=== PATIENT | male | born 1940 | race Caucasian/White ===

== ENCOUNTER → 2016-10-20 | Outpatient (CLI) | payer MEDICARE ==
[~2016-10-20] MED LIST: ASPI81 PO; CHON150C; CITA20 PO; CLOP75 PO; GLUC15002; ISOP1SOL IO; LIPI10TA PO; TRAZ50TA78 PO
[2016-10-20 13:23] LABS: ALKALINE PHOSPHATASE 77 U/L (45-117); ALT (GPT) 17 U/L (12-78); ANION GAP 4 MEQ/L (5-15); AST (GOT) 16 U/L (15-37); BICARBONATE 31.7 MEQ/L (21.0-32.0); BLOOD UREA NITROGEN 17 MG/DL (7-18); CHLORIDE 107 MEQ/L (98-107); GLOMERULAR FILTRATION RATE 64 ML/MIN (>89); GLUCOSE,FASTING 92 MG/DL (74-99); HDL CHOLESTEROL 63.8 MG/DL (40.0-60.0); LDL CHOLESTEROL 62 MG/DL (0-99); LDL CHOLESTEROL DIRECT 78 MG/DL (0-99); POTASSIUM 4.3 MEQ/L (3.5-5.1); SODIUM (NA) 143 MEQ/L (136-145); TOTAL BILIRUBIN ADULT 0.6 MG/DL (0.2-1.0)
[2016-10-20 13:31] LABS: HEMATOCRIT 37.1 % (39.0-51.0); MEAN CELL VOLUME 62.9 FL (80.0-100.0); MEAN CORPUSCULAR HEMOGLOBIN 19.7 PG (27.0-34.0); MEAN CORPUSCULAR HGB CONC 31.3 % (32.0-36.0); PLATELET COUNT 136 TH/MM3 (150-450); RED BLOOD COUNT 5.89 MIL/MM3 (4.50-5.90); RED CELL DISTRIBUTION WIDTH 16.5 % (11.6-17.2); WHITE BLOOD COUNT 4.5 TH/MM3 (4.0-11.0)
[2016-10-20 13:34] LABS: REVIEW FLAG AUTO DIFF
== END ==
LOC: PLAB 08:53
PROVIDERS: ATTEND Family Medicine
DX: I25.10 Atherosclerotic heart disease of native coronary artery without angina pectoris (principal); E78.4 Other hyperlipidemia; I10 Essential (primary) hypertension
CPT/HCPCS: 36415; 80053; 80061; 83721; 85027

== ENCOUNTER → 2017-02-09 | Outpatient (CLI) | payer MEDICARE ==
[2017-02-09 13:19] LABS: MEAN CELL VOLUME 61.9 FL (80.0-100.0); MEAN CORPUSCULAR HEMOGLOBIN 19.8 PG (27.0-34.0); PLATELET COUNT 141 TH/MM3 (150-450); RED BLOOD COUNT 5.98 MIL/MM3 (4.50-5.90); RED CELL DISTRIBUTION WIDTH 16.9 % (11.6-17.2); REVIEW FLAG FINAL; WHITE BLOOD COUNT 5.5 TH/MM3 (4.0-11.0)
[2017-02-09 13:45] LABS: ANION GAP 4 MEQ/L (5-15); AST (GOT) 16 U/L (15-37); BICARBONATE 30.3 MEQ/L (21.0-32.0); BLOOD UREA NITROGEN 16 MG/DL (7-18); CHLORIDE 106 MEQ/L (98-107); GLOMERULAR FILTRATION RATE 62 ML/MIN (>89); GLUCOSE,FASTING 94 MG/DL (74-99); POTASSIUM 4.3 MEQ/L (3.5-5.1); SODIUM (NA) 140 MEQ/L (136-145)
[2017-02-09 13:52] LABS: ALKALINE PHOSPHATASE 79 U/L (45-117); ALT (GPT) 18 U/L (12-78); HDL CHOLESTEROL 50.7 MG/DL (40.0-60.0); LDL CHOLESTEROL 68 MG/DL (0-99); LDL CHOLESTEROL DIRECT 72 MG/DL (0-99); TOTAL BILIRUBIN ADULT 0.7 MG/DL (0.2-1.0)
== END ==
LOC: PLAB 09:46
PROVIDERS: ATTEND Family Medicine
DX: I25.10 Atherosclerotic heart disease of native coronary artery without angina pectoris (principal); E78.4 Other hyperlipidemia
CPT/HCPCS: 36415; 80053; 80061; 83721; 85027

== ENCOUNTER → 2017-04-16 | Day surgery (SDC) | payer MEDICARE ==
[~2017-04-16] MED LIST changes: +ALEV220T14 PO; +ARTH650T6 PO; -ASPI81 PO; +ASPI81TA11 PO; +ATOR10TA15 PO; +CELE20TA PO; -CHON150C; +CHON250C PO; -CITA20 PO; -CLOP75 PO; -GLUC15002; +GLUC15002 PO; -ISOP1SOL IO; +LIDOCAINE HCL 1% PF 30 ML VIAL INFIL ONE; -LIPI10TA PO; +PILO1SOL5 EACH EYE; +PLAV75TA29 PO; +PROPOFOL 200 MG/20 ML AMP IV ONE; +SODIUM CHLORIDE 0.9% 10 ML VIAL ONE; +TRAZ50TA12 PO; -TRAZ50TA78 PO; +methylPREDNISolone ACETATE 80 MG/ML VIAL ONE
--- NOTE | 2017-04-18 11:52 | M6 ---
cc: MORENO MORALES M.D. DATE: 04/16/2017 DATE OF : 1940 PROCEDURE Fluoroscopically guided L4-5 translaminar epidural steroid injection. History and physical was completed and signed. Consent was signed. Procedure site was marked. Medications were listed and reconciled. Pain score was recorded. Allergies were noted. Time out was taken. Fluoroscopy time was recorded where applicable. Sedation was administered or directed by Dr. Morales. The patient was given oxygen. The patient was monitored by a registered nurse. Total procedure time was greater than 15 minutes. PROCEDURE NOTE: IV was started, blood pressure cuff, pulse oximeter and EKG were applied. The patient was placed in the prone position on a Seven table sedated with small amounts of propofol titrated to effect. Vital signs were monitored and remained stable throughout the procedure. The lumbar area was prepped with alcohol and 10% Betadine solution and draped with sterile drapes. Fluoroscopy was used to visualize the L4-5 interlaminar space. The skin was infiltrated with 1% Xylocaine using a 27 gauge needle, then a 3-1/2-inch 18-gauge Sarabia needle was advanced using fluoroscopic guidance and the [id number] technique into the epidural space at L4-5 slightly to the left of the midline. There was negative aspiration for blood or any other type of fluid and the patient was given 10 mL of 0.5% Xylocaine, 80 mg of Depo-Medrol. Following the procedure the patient was taken to the recovery room with stable vital signs neurologically intact. W. MD KRISTAN Wu/WILLARD /9:31 AM /7:55 AM
== END | disposition home or self-care (01) ==
LOC: PHSDC 08:24
PROVIDERS: ATTEND Pain Medicine Interventional Pain Medicine
DX: M54.5 Low back pain (principal)
CPT/HCPCS: 62323; 99152; J1040

== ENCOUNTER → 2017-05-06 | Outpatient (CLI) | payer MEDICARE ==
[~2017-05-06] MED LIST changes: -LIDOCAINE HCL 1% PF 30 ML VIAL INFIL ONE; -PLAV75TA29 PO; -PROPOFOL 200 MG/20 ML AMP IV ONE; -SODIUM CHLORIDE 0.9% 10 ML VIAL ONE; -methylPREDNISolone ACETATE 80 MG/ML VIAL ONE
[2017-05-06 13:39] LABS: HEMATOCRIT 37.2 % (39.0-51.0); MEAN CELL VOLUME 63.3 FL (80.0-100.0); MEAN CORPUSCULAR HEMOGLOBIN 19.8 PG (27.0-34.0); MEAN CORPUSCULAR HGB CONC 31.4 % (32.0-36.0); PLATELET COUNT 132 TH/MM3 (150-450); RED BLOOD COUNT 5.87 MIL/MM3 (4.50-5.90); RED CELL DISTRIBUTION WIDTH 16.9 % (11.6-17.2); WHITE BLOOD COUNT 5.8 TH/MM3 (4.0-11.0)
[2017-05-06 13:44] LABS: REVIEW FLAG FINAL
[2017-05-06 13:50] LABS: ANION GAP 4 MEQ/L (5-15); AST (GOT) 15 U/L (15-37); BICARBONATE 28.4 MEQ/L (21.0-32.0); BLOOD UREA NITROGEN 20 MG/DL (7-18); CHLORIDE 109 MEQ/L (98-107); GLOMERULAR FILTRATION RATE 58 ML/MIN (>89); GLUCOSE,FASTING 93 MG/DL (74-99); POTASSIUM 4.1 MEQ/L (3.5-5.1); SODIUM (NA) 141 MEQ/L (136-145)
[2017-05-06 14:03] LABS: ALKALINE PHOSPHATASE 78 U/L (45-117); ALT (GPT) 21 U/L (12-78); LDL CHOLESTEROL 68 MG/DL (0-99); LDL CHOLESTEROL DIRECT 82 MG/DL (0-99); TOTAL BILIRUBIN ADULT 0.6 MG/DL (0.2-1.0)
== END ==
LOC: PLAB 09:14
PROVIDERS: ATTEND Family Medicine
DX: I25.10 Atherosclerotic heart disease of native coronary artery without angina pectoris (principal); E78.2 Mixed hyperlipidemia; I10 Essential (primary) hypertension
CPT/HCPCS: 36415; 80053; 80061; 83721; 85027

== ENCOUNTER → 2017-08-13 | Outpatient (CLI) | payer MEDICARE ==
[~2017-08-13] MED LIST changes: -ASPI81TA11 PO; +ASPI81TA23 PO; -GLUC15002 PO; +GLUCOSAMINE 1501 CAP PO
[2017-08-13 09:52] LABS: ANION GAP 5 MEQ/L (5-15); AST (GOT) 15 U/L (15-37); BICARBONATE 29.3 MEQ/L (21.0-32.0); BLOOD UREA NITROGEN 16 MG/DL (7-18); CHLORIDE 108 MEQ/L (98-107); GLOMERULAR FILTRATION RATE 69 ML/MIN (>89); GLUCOSE,FASTING 92 MG/DL (74-99); POTASSIUM 3.9 MEQ/L (3.5-5.1); SODIUM (NA) 142 MEQ/L (136-145)
[2017-08-13 09:53] LABS: HEMATOCRIT 36.8 % (39.0-51.0); MEAN CELL VOLUME 63.9 FL (80.0-100.0); MEAN CORPUSCULAR HEMOGLOBIN 20.1 PG (27.0-34.0); MEAN CORPUSCULAR HGB CONC 31.5 % (32.0-36.0); PLATELET COUNT 158 TH/MM3 (150-450); RED BLOOD COUNT 5.76 MIL/MM3 (4.50-5.90); RED CELL DISTRIBUTION WIDTH 16.2 % (11.6-17.2); REVIEW FLAG FINAL; WHITE BLOOD COUNT 5.5 TH/MM3 (4.0-11.0)
[2017-08-13 09:59] LABS: ALKALINE PHOSPHATASE 79 U/L (45-117); ALT (GPT) 18 U/L (12-78); HDL CHOLESTEROL 64.3 MG/DL (40.0-60.0); LDL CHOLESTEROL 60 MG/DL (0-99); LDL CHOLESTEROL DIRECT 72 MG/DL (0-99); TOTAL BILIRUBIN ADULT 0.6 MG/DL (0.2-1.0)
== END ==
LOC: PLAB 07:59
PROVIDERS: ATTEND Family Medicine
DX: I25.10 Atherosclerotic heart disease of native coronary artery without angina pectoris (principal); E78.2 Mixed hyperlipidemia; I10 Essential (primary) hypertension
CPT/HCPCS: 36415; 80053; 80061; 83721; 85027

== ENCOUNTER → 2017-11-24 | Outpatient (CLI) | payer MEDICARE ==
[2017-11-24 10:17] LABS: HEMATOCRIT 36.6 % (39.0-51.0); HEMOGLOBIN 11.4 GM/DL (13.0-17.0); MEAN CORPUSCULAR HEMOGLOBIN 19.6 PG (27.0-34.0); MEAN CORPUSCULAR HGB CONC 31.2 % (32.0-36.0); MEAN PLATELET VOLUME 9.6 FL (7.0-11.0); PLATELET COUNT 148 TH/MM3 (150-450); RED BLOOD COUNT 5.81 MIL/MM3 (4.50-5.90); RED CELL DISTRIBUTION WIDTH 17.5 % (11.6-17.2); WHITE BLOOD COUNT 5.1 TH/MM3 (4.0-11.0)
[2017-11-24 10:31] LABS: ALBUMIN 3.5 GM/DL (3.4-5.0); AST (GOT) 18 U/L (15-37); BICARBONATE 27.2 MEQ/L (21.0-32.0); BLOOD UREA NITROGEN 22 MG/DL (7-18); CALCIUM 8.5 MG/DL (8.5-10.1); CHLORIDE 109 MEQ/L (98-107); CREATININE 1.16 MG/DL (0.60-1.30); GLOMERULAR FILTRATION RATE 61 ML/MIN (>89); GLUCOSE,FASTING 98 MG/DL (74-99); SODIUM (NA) 143 MEQ/L (136-145)
[2017-11-24 10:33] LABS: CHOLESTEROL 137 MG/DL (120-200)
[2017-11-24 10:38] LABS: ALKALINE PHOSPHATASE 73 U/L (45-117); ALT (GPT) 19 U/L (12-78); CHOLESTEROL/ HDL RATIO 2.64 RATIO; HDL CHOLESTEROL 51.8 MG/DL (40.0-60.0); LDL CHOLESTEROL 68 MG/DL (0-99); LDL CHOLESTEROL DIRECT 81 MG/DL (0-99); TOTAL BILIRUBIN ADULT 0.6 MG/DL (0.2-1.0); TOTAL PROTEIN 6.5 GM/DL (6.4-8.2); TRIGLYCERIDES 88 MG/DL (42-150)
[2017-11-25 15:22] LABS: HEMOGLOBIN A1C 5.6 % (4.3-6.0)
== END ==
LOC: PLAB 07:34
PROVIDERS: ATTEND Family Medicine
DX: I25.10 Atherosclerotic heart disease of native coronary artery without angina pectoris (principal); E78.5 Hyperlipidemia, unspecified; I10 Essential (primary) hypertension; R73.01 Impaired fasting glucose
CPT/HCPCS: 36415; 80053; 80061; 83036; 83721; 85027

== ENCOUNTER 2018-06-10 15:09 | Observation (INO) ==
--- NOTE | 2018-06-10 16:09 | ED ---
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 Frost for arthritis, here for evaluation of double vision that started about 30 minutes prior to arrival. On my assessment the patient reports that the double vision was in his right eye predominantly, and seems to be improved, however still slightly there. He denies eye pain. No paresthesias or motor deficits. He also noted that his blood pressure was significantly low at the onset of symptoms, stating that it was around 113/24. 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 He takes 81mg ASA daily. Related Data Home Medications Medication Instructions Recorded Confirmed aspirin [Aspir-81] 81 mg PO DAILY 06/10/18 06/10/18 atorvastatin [Lipitor] 10 mg PO DAILY 06/10/18 06/10/18 chondroitin sulfate A 250 mg PO BID 06/10/18 06/10/18 citalopram 20 mg PO DAILY 06/10/18 06/10/18 gabapentin 300 mg PO BID 06/10/18 06/10/18 glucosamine sulfate [Glucosamine] 1,500 mg PO BID 06/10/18 06/10/18 hydrocodone-acetaminophen 0 tab PO Q4-6H PRN 06/10/18 06/10/18 trazodone 50 mg PO HS 06/10/18 06/10/18 Allergies Allergy/AdvReac Type Severity Reaction Status Date / Time No Known Allergies Allergy Verified 06/10/18 15:19 Review of Systems ROS: all other systems reviewed are negative [facility] Medical History Medical History High cholesterol (Acute) History of CVA (cerebrovascular accident) (Acute) Surgical History Surgical History Hx of arthroscopic knee surgery (Acute) Hx of cataract surgery (Acute) Hx of tonsillectomy (Acute) Social History Social History Substance History: No History of Abuse Second Hand Smoke Exposure: Yes (as child) Smoking Status: Never smoker How Often Do You Have a Drink Containing Alcohol: 4 or more times a week Recent Travel in [facility] within the Last 8 Weeks: No Recent Out of Country Travel within the Last 8 Weeks: No Immunization History Tetanus Immunization: Unsure Exam Narrative Exam Narrative: GENERAL: Well-developed, well-nourished, awake, alert, comfortable, no acute distress, GCS 15. SKIN: Focused skin assessment warm/dry. HEAD: Atraumatic. Normocephalic. EYES: Left pupil is 3 mm and minimally reactive, right pupil is 2 mm and minimally reactive. EOMI. No scleral icterus. No injection or drainage. ENT: No nasal bleeding or discharge. Mucous membranes pink and moist. NECK: Trachea midline. No JVD. CARDIOVASCULAR: Regular rate and rhythm. RESPIRATORY: No accessory muscle use. Clear to auscultation. Breath sounds equal bilaterally. GASTROINTESTINAL: Abdomen soft, non-tender, nondistended. MUSCULOSKELETAL: No obvious deformities. No clubbing. No cyanosis. No edema. NEUROLOGICAL: Awake and alert. No obvious cranial nerve deficits. Motor grossly within normal limits. Normal speech. Normal ufldkg-wmpb-pyojhn test bilaterally. No pronator drift. PSYCHIATRIC: Appropriate mood and affect; insight and judgment normal. Course Initial Documented Vital Signs Temperature 99.0 F 06/10/18 15:19 Pulse Rate 75 06/10/18 15:19 Respiratory Rate 16 06/10/18 15:19 Blood Pressure 156/79 H 06/10/18 15:19 Pulse Oximetry 97 06/10/18 15:19 Last Documented Vital Signs Temperature 98.1 F 06/10/18 19:06 Pulse Rate 73 06/10/18 19:06 Respiratory Rate 18 06/10/18 19:06 Blood Pressure 142/83 H 06/10/18 19:50 Pulse Oximetry 97 06/10/18 16:02 Medical Decision Making [facility] Narrative Medical decision making narrative: Upon return from CT at around 4:30 PM the patient reports that his diplopia has completely resolved. Vital signs reviewed. CBC is remarkable for slight anemia. The patient has history of thalassemia minor. CT head shows no acute intracranial abnormality. EKG shows an old left bundle branch block. The patient and the patient's were made aware of all findings. Given his history of CVA affecting his left lower quadrant vision, although his symptoms have resolved, this could be a TIA, and I recommend admission for further TIA workup. They are amenable to this plan. Case discussed with hospitalist Dr. Lopez who will admit the patient to the hospitalist service. He asked that I order the MRI of the patient's brain. Medical Screen Exam Complete: Yes Emergency Medical Condition: Yes Differential Diagnosis Differential Diagnosis: CVA/TIA, intracranial abnormality, metabolic abnormality , monocular diplopia Lab Data Result diagrams: 06/10/18 16:14 06/10/18 16:14 Lab Results 06/10/18 06/10/18 06/10/18 Range/Units 16:11 16:14 16:14 CBC w Diff Slide review pending WBC 6.4 (4.0-11.0) th/mm3 RBC 5.05 (4.50-5.90) mil/mm3 Hgb 10.5 L (13.0-17.0) gm/dL Hct 33.1 L (39.0-51.0) % MCV 65.4 L (80.0-100.0) fL MCH 20.7 L (27.0-34.0) pg MCHC 31.6 L (32.0-36.0) % RDW 16.1 (11.6-17.2) % Plt Count 157 (150-450) th/mm3 MPV 11.8 H (7.0-11.0) fL Neut % (Auto) 62.8 (16.0-70.0) % Lymph % (Auto) 25.9 (9.0-44.0) % Benzie % (Auto) 9.6 H (0.0-8.0) % Eos % (Auto) 1.2 (0.0-4.0) % Baso % (Auto) 0.5 (0.0-2.0) % Neut # (Auto) 4.0 (1.8-7.7) th/mm3 Lymph # (Auto) 1.7 (1.0-4.8) th/mm3 Benzie # (Auto) 0.6 (0.0-0.9) th/mm3 Eos # (Auto) 0.1 (0.0-0.4) th/mm3 Baso # (Auto) 0.0 (0.0-0.2) th/mm3 WBC Differential . Diff Scan Auto diff confirmed Differential Comment . Platelet Estimate Normal (Normal) Platelet Morphology Enlarged H (Normal) Ovalocytes 1+ H (None) PT 10.1 (9.8-11.6) sec INR 1.0 Ratio APTT 24.2 L (24.3-30.1) sec Sodium (136-145) meq/L Potassium (3.5-5.1) meq/L Chloride (98-107) meq/L Carbon Dioxide (21.0-32.0) meq/L Anion Gap (5-15) meq/L BUN (7-18) mg/dL Creatinine (0.60-1.30) mg/dL Estimated GFR (>89) mL/min POC Glucose 103 (68-110) mg/dl Random Glucose (74-106) mg/dL Calcium (8.5-10.1) mg/dL Total Bilirubin (0.2-1.0) mg/dL AST (15-37) U/L ALT (12-78) U/L Alkaline Phosphatase (45-117) U/L Total Protein (6.4-8.2) g/dL Albumin (3.4-5.0) g/dL 06/10/18 Range/Units 16:14 CBC w Diff WBC (4.0-11.0) th/mm3 RBC (4.50-5.90) mil/mm3 Hgb (13.0-17.0) gm/dL Hct (39.0-51.0) % MCV (80.0-100.0) fL MCH (27.0-34.0) pg MCHC (32.0-36.0) % RDW (11.6-17.2) % Plt Count (150-450) th/mm3 MPV (7.0-11.0) fL Neut % (Auto) (16.0-70.0) % Lymph % (Auto) (9.0-44.0) % Benzie % (Auto) (0.0-8.0) % Eos % (Auto) (0.0-4.0) % Baso % (Auto) (0.0-2.0) % Neut # (Auto) (1.8-7.7) th/mm3 Lymph # (Auto) (1.0-4.8) th/mm3 Benzie # (Auto) (0.0-0.9) th/mm3 Eos # (Auto) (0.0-0.4) th/mm3 Baso # (Auto) (0.0-0.2) th/mm3 WBC Differential Diff Scan Differential Comment Platelet Estimate (Normal) Platelet Morphology (Normal) Ovalocytes (None) PT (9.8-11.6) sec INR Ratio APTT (24.3-30.1) sec Sodium 145 (136-145) meq/L Potassium 4.2 (3.5-5.1) meq/L Chloride 109 H (98-107) meq/L Carbon Dioxide 31.3 (21.0-32.0) meq/L Anion Gap 5 (5-15) meq/L BUN 21 H (7-18) mg/dL Creatinine 1.20 (0.60-1.30) mg/dL Estimated GFR 58 L (>89) mL/min POC Glucose (68-110) mg/dl Random Glucose 95 (74-106) mg/dL Calcium 7.9 L (8.5-10.1) mg/dL Total Bilirubin 0.4 (0.2-1.0) mg/dL AST 16 (15-37) U/L ALT 21 (12-78) U/L Alkaline Phosphatase 77 (45-117) U/L Total Protein 6.0 L (6.4-8.2) g/dL Albumin 3.2 L (3.4-5.0) g/dL Imaging Data Radiologist's impression: Carotid Doppler Study 06/10/18 00:00 CONCLUSION: Mild plaque is seen at the carotid bulb regions without a significant stenosis. Head CT 06/10/18 16:02 CONCLUSION: 1. Negative for acute process . ECG Data Attestation: I personally reviewed and interpreted this ECG as follows: (Sinus, rate 68, left axis deviation, LBBB, unchanged from 11/30/15.) Discharge Plan Discharge Disposition Patient Disposition: 30 Still Patient Discharge Condition Condition: Stable Discharge Details Diagnosis: TIA (transient ischemic attack), Diplopia Physicians Team ED Provider: Nathanael Zimmer Primary Care Provider: Tim Gutierrez Attending Provider: Bull Lopez Status ED Status: Left Department Discharge Information Discharge Date/Time: 06/10/18 20:08
--- NOTE | 2018-06-10 16:26 | CT ---
EXAM DATE: 06/10/2018 4:06 PM EDT AGE/SEX: 78 years / Male INDICATIONS: Blurred vision. Low blood pressure. Evaluate for cerebrovascular accident. CLINICAL DATA: This is the patient's initial encounter. Patient reports that signs and symptoms have been present for 1 day and indicates a pain score of 0/10. MEDICAL/SURGICAL HISTORY: Cerebrovascular disease. Stroke. None. RADIATION DOSE: 52.49 CTDI (mGy) COMPARISON: [facility] [place], [place] BRAIN W/O CONTRAST, 03/07/2016. . TECHNIQUE: CT of the head without contrast. Using automated exposure control and adjustment of the mA and/or kV according to patient size, radiation dose was kept as low as reasonably achievable to ob tain optimal diagnostic quality images. DICOM format image data is available electronically for revi ew and comparison. FINDINGS: Cerebrum: The ventricles are normal for age. No evidence of midline shift, mass lesion, hemorrhage or acute infarction. No extraaxial fluid collections are seen. Posterior Fossa: The cerebellum and brainstem are intact. The 4th ventricle is midline. The cerebe llopontine angle is unremarkable. Extracranial: The visualized portion of the orbits is intact. Skull: The calvaria is intact. No evidence of skull fracture. CONCLUSION: 1. Negative for acute process . Electronically signed by: Irving Cowart MD 06/10/2018 4:25 PM EDT
[2018-06-10] MEDS: Sod Chloride 0.9% Inj 1,000 ML IV.CONT SCH (16:34)
[2018-06-10 16:42] LABS: Baso % (Auto) 0.5 % (0.0-2.0); Eos # (Auto) 0.1 th/mm3 (0.0-0.4); Eos % (Auto) 1.2 % (0.0-4.0); Hematocrit 33.1 % (39.0-51.0); Hemoglobin 10.5 gm/dL (13.0-17.0); Lymph # (Auto) 1.7 th/mm3 (1.0-4.8); Lymph % (Auto) 25.9 % (9.0-44.0); Mean Corpuscular HGB Conc 31.6 % (32.0-36.0); Mean Corpuscular Hemoglobin 20.7 pg (27.0-34.0); Mean Corpuscular Volume 65.4 fL (80.0-100.0); Mean Platelet Volume 11.8 fL (7.0-11.0); Mono # (Auto) 0.6 th/mm3 (0.0-0.9); Mono % (Auto) 9.6 % (0.0-8.0); Neut % (Auto) 62.8 % (16.0-70.0); Platelet Count 157 th/mm3 (150-450); Red Blood Count 5.05 mil/mm3 (4.50-5.90); Red Cell Distribution Width 16.1 % (11.6-17.2); White Blood Count 6.4 th/mm3 (4.0-11.0)
[2018-06-10 16:54] LABS: Activated Partial Thrombo Time 24.2 sec (24.3-30.1); Prothrombin Time 10.1 sec (9.8-11.6)
[2018-06-10 17:12] LABS: Ovalocytes 1+; Platelet Estimate Normal (Normal)
[2018-06-10 17:14] LABS: Chloride 109 meq/L (98-107); Potassium 4.2 meq/L (3.5-5.1); Sodium 145 meq/L (136-145)
[2018-06-10 17:17] LABS: Albumin 3.2 g/dL (3.4-5.0); Anion Gap 5 meq/L (5-15); Blood Urea Nitrogen 21 mg/dL (7-18); Calcium 7.9 mg/dL (8.5-10.1); Carbon Dioxide 31.3 meq/L (21.0-32.0); Glucose,Random 95 mg/dL (74-106)
[2018-06-10 17:20] LABS: Alanine Aminotransferase 21 U/L (12-78); Aspartate Aminotransferase 16 U/L (15-37); Glomerular Filtration Rate 58 mL/min (>89)
[2018-06-10 17:23] LABS: Alkaline Phosphatase 77 U/L (45-117)
[2018-06-10] MEDS ORDERED: Acetaminophen 325 MG Tablet PO PRN (19:03)
[2018-06-10] MEDS ORDERED: Naloxone Inj 0.4 MG/ML Vial IV.PUSH PRN (19:06)
[2018-06-10] MEDS ORDERED: hydrALAZINE 25 MG Tablet PO PRN (19:07)
--- NOTE | 2018-06-10 20:47 | US ---
EXAM DATE: 06/10/2018 12:00 AM EDT AGE/SEX: 78 years / Male INDICATIONS: Double vision for 30 min. CLINICAL DATA: This is the patient's initial encounter. Patient reports that signs and symptoms have been present for 1 day and indicates a pain score of 0/10. MEDICAL/SURGICAL HISTORY: Hypertension. CVA. Tonsillectomy. Cataract surgery. Arthroscopic kn ee surgery. [place] [facility] [place] . VELOCITY PARAMETERS: ICA/CCA Ratio: Right 0.9 , Left 1.0 ICA: Right 81 cm/sec, Left 76 cm/sec CCA: Right 86 cm/sec, Left 78 cm/sec ECA: Right 54 cm/sec, Left 63 cm/sec Vertebral: Right 53 cm/sec antegrade, Left 38 cm/sec antegrade FINDINGS: Right Carotid: Mild arteriosclerotic plaque is visualized.The waveforms are within normal limits. Left Carotid: Mild arteriosclerotic plaque is visualized. The waveforms are within normal limits. Other: None. CONCLUSION: Mild plaque is seen at the carotid bulb regions without a significant stenosis. Electronically signed by: Parviz Boyle MD 06/10/2018 8:46 PM EDT
[2018-06-10] MEDS ORDERED: CHONDROITIN SULFATE PO SCH (21:00)
[2018-06-10] MEDS: Gabapentin 300 MG Capsule PO SCH (21:04)
[2018-06-11 06:02] LABS: Chloride 109 meq/L (98-107); Potassium 4.5 meq/L (3.5-5.1); Sodium 143 meq/L (136-145)
[2018-06-11 06:05] LABS: Albumin 2.9 g/dL (3.4-5.0); Anion Gap 4 meq/L (5-15); Calcium 7.8 mg/dL (8.5-10.1); Carbon Dioxide 29.9 meq/L (21.0-32.0); Glucose,Random 80 mg/dL (74-106)
[2018-06-11 06:06] LABS: Blood Urea Nitrogen 17 mg/dL (7-18)
[2018-06-11 06:08] LABS: Alanine Aminotransferase 16 U/L (12-78); Aspartate Aminotransferase 13 U/L (15-37)
[2018-06-11 06:09] LABS: Glomerular Filtration Rate 72 mL/min (>89)
[2018-06-11 06:10] LABS: Total Protein 5.6 g/dL (6.4-8.2)
[2018-06-11 06:11] LABS: Alkaline Phosphatase 75 U/L (45-117)
[2018-06-11 06:18] LABS: Baso % (Auto) 0.3 % (0.0-2.0); Eos # (Auto) 0.1 th/mm3 (0.0-0.4); Eos % (Auto) 2.4 % (0.0-4.0); Hematocrit 31.8 % (39.0-51.0); Hemoglobin 10.2 gm/dL (13.0-17.0); Lymph % (Auto) 40.3 % (9.0-44.0); Mean Corpuscular HGB Conc 31.9 % (32.0-36.0); Mean Corpuscular Hemoglobin 20.6 pg (27.0-34.0); Mean Corpuscular Volume 64.5 fL (80.0-100.0); Mean Platelet Volume 9.7 fL (7.0-11.0); Mono # (Auto) 0.5 th/mm3 (0.0-0.9); Mono % (Auto) 9.6 % (0.0-8.0); Neut # (Auto) 2.5 th/mm3 (1.8-7.7); Neut % (Auto) 47.4 % (16.0-70.0); Platelet Count 116 th/mm3 (150-450); Red Blood Count 4.94 mil/mm3 (4.50-5.90); Red Cell Distribution Width 15.9 % (11.6-17.2); White Blood Count 5.1 th/mm3 (4.0-11.0)
[2018-06-11] MEDS: Sod Chloride 0.9% Inj 1,000 ML IV.CONT SCH (07:19)
[2018-06-11] MEDS: Gabapentin 300 MG Capsule PO SCH (08:52)
[2018-06-11] MEDS ORDERED: Citalopram 20 MG Tablet PO SCH (09:00)
--- NOTE | 2018-06-11 10:32 | MR ---
EXAM DATE: 06/11/2018 6:13 PM EDT AGE/SEX: 78 years / Male INDICATIONS: TIA. Diplopia, resolved. CLINICAL DATA: This is the patient's initial encounter. Patient reports that signs and symptoms have been present for 2 days and indicates a pain score of 0/10. MEDICAL/SURGICAL HISTORY: Cerebrovascular disease. Cardiovascular disease. CABG. Loop recorder . COMPARISON: [facility], CT HEAD W/O CONTRAST, 06/10/2018. C, [facility] BRAIN W/O CONTRAST, 03/07/2016. . TECHNIQUE: Multiplanar, multisequence examination of the brain was performed without contrast. FINDINGS: Cerebrum: The ventricles are normal for age. No evidence of midline shift, mass lesion, hemorrhage or acute infarction. No extraaxial fluid collections are seen. Area of encephalomalacia involving th e right posterior occipital lobe. The pituitary gland and suprasellar cistern are normal in configura tion. White Matter: Periventricular white matter hypointensities and scattered foci of increased white matter hyperintens ity within the right and left frontal lobes. Focal area of encephalomalacia involving the posterior a spect of the right occipital lobe. Posterior Fossa: The cerebellum and brainstem are intact. The 4th ventricle is midline. The cerebel lopontine angle is unremarkable. The cerebellar tonsils are normal in position. Diffusion Imaging: No focal areas of restricted diffusion are seen. No evidence of acute infarction . Extracranial: The visualized portions of the orbits and paranasal sinuses are unremarkable. CONCLUSION: 1. No acute abnormality seen. Electronically signed by: Imelda Cantu MD 06/11/2018 10:31 AM EDT
--- NOTE | 2018-06-11 11:06 | P.HP ---
History of Present Illness Primary Care Physician: Tim Gutierrez MD Chief Complaint: Double vision History of Present Illness: 78-year-old male with known history of hyperlipidemia, hypertrophic cardiomyopathy, history of CVA who presented the hospital because an episode of double vision. Patient was reading the paper and doing some puzzles at approximately 230 yesterday afternoon when he had a short-term episode of double vision. Patient states that he was having a hard time focusing and he compared his right eye versus left eye and he did notice that there may have been some double vision. Patient states that it lasted for short period time approximately 20-30 minutes. He did have a previous stroke which presented with visual disturbances a few years ago. Because of the visual disturbances before he came to the hospital to evaluate for another stroke. Patient denies any other neurological symptoms. Denies any speech difficulties, difficulty in swallowing food, paresthesia, weakness, difficulty in speaking. Patient was given aspirin in the emergency department, CT scan was done which was unremarkable. ER physician recommended patient be observed in the hospital for further evaluation and management. - Diagnosis (1) Transient diplopia Review of Systems All other systems reviewed negative except as stated in HPI Eyes: Reports double vision PMFSH - History History Provided By: Patient - Medical History Medical History: Medical History (Last Reviewed 06/11/18 @ 11:03 by CE Smart) High cholesterol History of CVA (cerebrovascular accident) - Surgical History Surgical History: Surgical History (Last Reviewed 06/11/18 @ 11:03 by CE Smart) Hx of arthroscopic knee surgery Hx of cataract surgery Hx of tonsillectomy - Family History Family History: Family History (Last Updated 06/11/18 @ 10:50 by CE Smart) Mother History of myocardial infarction Father History of throat cancer Brother Family history of Alzheimer's disease - Tobacco History Second Hand Smoke Exposure: Yes (as child) Tobacco Use In Past 30 Days: No Smoking Status: Never smoker - Alcohol History How Often Do You Have a Drink Containing Alcohol: 4 or more times a week - Substance Use History Substance History: No History of Abuse - Travel History Recent Travel in the [place] Within the Last 8 Weeks: No Recent Travel Out of the Country Within the Last 8 Weeks: No - Immunization History Tetanus Immunization: Unsure Medications and Allergies Active Medications: Active Medications Acetaminophen (Tylenol) 650 mg PO Q4H PRN PRN Reason: Temp > 100.4 Hydrocodone Bitart/Acetaminophen ([place] 5/325) 1 tab PO Q4H PRN PRN Reason: PAIN SCALE 3 TO 5 Last Admin: 06/10/18 21:03 Dose: 1 tab Hydrocodone Bitart/Acetaminophen ([place] 7.5/325) 1 tab PO Q4H PRN PRN Reason: PAIN SCALE 6 TO 10 Last Admin: 06/11/18 04:02 Dose: 1 tab Al Hydroxide/Mg Hydroxide (Milk Of [place] Vo) 30 ml PO Q12H PRN PRN Reason: Mild Constipation Albuterol (Duoneb Neb (Prn)) 1 ampul NEB Q2HR NEB PRN PRN Reason: SHORTNESS OF BREATH Aspirin (Ecotrin) 81 mg PO DAILY [facility] Last Admin: 06/11/18 08:52 Dose: 81 mg Atorvastatin Calcium (Lipitor) 10 mg PO DAILY [facility] Last Admin: 06/11/18 08:52 Dose: 10 mg Citalopram Hydrobromide (Celexa) 20 mg PO DAILY [facility] Last Admin: 06/11/18 08:52 Dose: 20 mg Gabapentin (Neurontin) 300 mg PO BID [facility] Last Admin: 06/11/18 08:52 Dose: 300 mg Hydralazine HCl (Apresoline) 25 mg PO TID PRN PRN Reason: SBP>160, DBP>90 Sodium Chloride (Ns Inj) 1,000 mls @ 70 mls/hr IV.CONT .[id number] [facility] Last Admin: 06/11/18 07:19 Dose: 70 mls/hr Naloxone HCl (Narcan Inj) 0.4 mg IV.PUSH UNSCH PRN PRN Reason: SEE LABEL COMMENTS Ondansetron HCl (Zofran Inj) 4 mg IV.PUSH Q6H PRN PRN Reason: NAUSEA OR VOMITING Allergies Allergy/AdvReac Type Severity Reaction Status Date / Time No Known Allergies Allergy Verified 06/10/18 15:19 Home Medications Medication Instructions Recorded Confirmed Type aspirin [Aspir-81] 81 mg PO DAILY 06/10/18 06/10/18 History atorvastatin [Lipitor] 10 mg PO DAILY 06/10/18 06/10/18 History chondroitin sulfate A 250 mg PO BID 06/10/18 06/10/18 History citalopram 20 mg PO DAILY 06/10/18 06/10/18 History gabapentin 300 mg PO BID 06/10/18 06/10/18 History glucosamine sulfate [Glucosamine] 1,500 mg PO BID 06/10/18 06/10/18 History hydrocodone-acetaminophen 0 tab PO Q4-6H PRN 06/10/18 06/10/18 History trazodone 50 mg PO HS 06/10/18 06/10/18 History Exam Vital signs: Vital Signs 06/10/18 15:19 06/10/18 16:02 06/10/18 19:06 Temperature 99.0 F 98.1 F Pulse Rate 75 78 73 Respiratory Rate 16 18 Blood Pressure 156/79 H 151/83 H Pulse Oximetry 97 97 06/10/18 19:50 06/10/18 20:02 06/10/18 20:07 Temperature 98.3 F Pulse Rate Respiratory Rate Blood Pressure 142/83 H 162/83 H Pulse Oximetry 97 99 06/10/18 21:38 06/10/18 22:00 06/10/18 23:41 Temperature 97.8 F Pulse Rate 70 68 Respiratory Rate 25 H 19 Blood Pressure 141/81 H 117/78 Pulse Oximetry 97 95 06/11/18 00:00 06/11/18 04:00 06/11/18 08:00 Temperature 98.4 F 98.6 F Pulse Rate 62 66 69 Respiratory Rate 15 23 15 Blood Pressure 140/81 140/89 Pulse Oximetry 94 L 94 L 06/11/18 08:13 Temperature Pulse Rate Respiratory Rate Blood Pressure Pulse Oximetry 94 L Intake & Output 06/10/18 06/11/18 06/11/18 18:59 06:59 18:59 Intake Total 1060 / 1060 Output Total 400 / 400 450 / 450 Balance 660 / 660 -450 / -450 Weight 81.5 kg 80.2 kg Intake: IV 1000 / 1000 NS Inj 1,000 ML @ 70 mls/hr IV. 1000 / 1000 CONT .[id number] [facility] Rx#: [id number] Oral 60 / 60 Output: Urine 400 / 400 450 / 450 Other: # Voids 2 Weight On Admission 80.2 kg Narrative: GENERAL: Well-developed, well-nourished, in no acute distress. alert and orientated HEENT: Head is normocephalic without any lesions or masses noted. Facial features are symmetric. Eyes: Pupils equal round reactive to light. Extraocular muscles are intact. Conjunctivae were clear. Obvious postsurgical changes of the eyes secondary to cataract surgery. Oropharyngeal: Pharynx without any erythema edema. Tongue is midline without deviation. Buccal mucosa is moist without any masses or lesions NECK: Supple without any masses. Trachea midline no deviation. No JVD, no bruits are appreciated CARDIAC: Regular rhythm, regular rate. S1/S2 are heard. No murmurs gallops or rubs. LUNGS: Clear to auscultation bilaterally. No wheeze, rhonchi or rales. No use of accessory muscles on inspiration or expiration. ABDOMEN: Soft, nontender. Nondistended. Bowel sounds heard in all 4 quadrants. No organomegaly or masses. Negative rebound, negative guarding EXTREMITIES: No edema, pulses are equal bilaterally. No cyanosis or clubbing NEUROLOGY: Mood and affect appear appropriate. Cranial nerves II through XII grossly intact. Muscle strength 5/5 in upper and lower extremities bilaterally. Deep tendon reflexes are 2+ in upper and lower extremities bilaterally. - Detailed Eye Exam Visual acuity: Visual Acuity Visual Acuity Uncorrected [ 20/20 Bilateral] Visual Acuity Uncorrected [ 20/40 Right] Visual Acuity Uncorrected [ 20/25 Left] Results - Labs CBC & Chem 7: 06/11/18 05:26 06/11/18 05:26 Labs: Laboratory Results - last 24 hr 06/10/18 06/10/18 06/10/18 16:11 16:14 16:14 CBC w Diff Slide review pending WBC 6.4 RBC 5.05 Hgb 10.5 L Hct 33.1 L MCV 65.4 L MCH 20.7 L MCHC 31.6 L RDW 16.1 Plt Count 157 MPV 11.8 H Neut % (Auto) 62.8 Lymph % (Auto) 25.9 [place] % (Auto) 9.6 H Eos % (Auto) 1.2 Baso % (Auto) 0.5 Neut # (Auto) 4.0 Lymph # (Auto) 1.7 [place] # (Auto) 0.6 Eos # (Auto) 0.1 Baso # (Auto) 0.0 WBC Differential . Diff Scan Auto diff confirmed Differential Comment . Platelet Estimate Normal Platelet Morphology Enlarged H Ovalocytes 1+ H PT 10.1 INR 1.0 APTT 24.2 L Sodium Potassium Chloride Carbon Dioxide Anion Gap BUN Creatinine Estimated GFR POC Glucose 103 Random Glucose Calcium Total Bilirubin AST ALT Alkaline Phosphatase Total Protein Albumin 06/10/18 06/11/18 06/11/18 16:14 05:26 05:26 CBC w Diff Slide review pending WBC 5.1 RBC 4.94 Hgb 10.2 L Hct 31.8 L MCV 64.5 L MCH 20.6 L MCHC 31.9 L RDW 15.9 Plt Count 116 L MPV 9.7 Neut % (Auto) 47.4 Lymph % (Auto) 40.3 [place] % (Auto) 9.6 H Eos % (Auto) 2.4 Baso % (Auto) 0.3 Neut # (Auto) 2.5 Lymph # (Auto) 2.0 [place] # (Auto) 0.5 Eos # (Auto) 0.1 Baso # (Auto) 0.0 WBC Differential . Diff Scan Auto diff confirmed Differential Comment . Platelet Estimate Platelet Morphology Ovalocytes PT INR APTT Sodium 145 143 Potassium 4.2 4.5 Chloride 109 H 109 H Carbon Dioxide 31.3 29.9 Anion Gap 5 4 L BUN 21 H 17 Creatinine 1.20 1.00 Estimated GFR 58 L 72 L POC Glucose Random Glucose 95 80 Calcium 7.9 L 7.8 L Total Bilirubin 0.4 0.5 AST 16 13 L ALT 21 16 Alkaline Phosphatase 77 75 Total Protein 6.0 L 5.6 L Albumin 3.2 L 2.9 L - Imaging Impressions Carotid Doppler Study 06/10/18 00:00 CONCLUSION: Mild plaque is seen at the carotid bulb regions without a significant stenosis. Head CT 06/10/18 16:02 CONCLUSION: 1. Negative for acute process . Head MRI 06/11/18 18:13 CONCLUSION: 1. No acute abnormality seen. Caprini VTE Risk Assessment Caprini VTE Risk Assessment: Moderate/High Risk (score >= 2) Caprini Risk Assessment Model: Point Value = 1 Point Value = 2 Point Value = 3 Point Value = 5 Age 41-60 Minor surgery BMI > 25 kg/m2 Swollen legs Varicose veins or History of unexplained or recurrent spontaneous Oral contraceptives or hormone replacement Sepsis (< 1 month) Serious lung disease, including pneumonia (< 1 month) Abnormal pulmonary function Acute myocardial infarction Congestive heart failure (< 1 month) History of inflammatory bowel disease Medical patient at bed rest Age 61-74 Arthroscopic surgery Major open surgery (> 45 min) Laparoscopic surgery (> 45 min) Malignancy Confined to bed (> 72 hours) Immobilizing plaster cast Central venous access Age >= 75 History of VTE Family history of VTE Factor V Leiden Prothrombin [id number] Lupus anticoagulant Anticardiolipin antibodies Elevated serum homocysteine Heparin-induced thrombocytopenia Other congenital or acquired thrombophilia Stroke (< 1 month) Elective arthroplasty Hip, pelvis, or leg fracture Acute spinal cord injury (< 1 month) Prophylaxis Regimen: Total Risk Factor Score Risk Level Prophylaxis Regimen 0-1 Low Early ambulation 2 Moderate Order ONE of the following: *Sequential Compression Device (SCD) *Heparin 5000 units SQ BID 3-4 Higher Order ONE of the following medications: *Heparin 5000 units SQ TID *Enoxaparin/Lovenox 40 mg SQ daily (WT < 150 kg, CrCl > 30 mL/min) *Enoxaparin/Lovenox 30 mg SQ daily (WT < 150 kg, CrCl > 10-29 mL/min) *Enoxaparin/Lovenox 30 mg SQ BID (WT < 150 kg, CrCl > 30 mL/min) AND/OR *Sequential Compression Device (SCD) 5 or more Highest Order ONE of the following medications: *Heparin 5000 units SQ TID (Preferred with Epidurals) *Enoxaparin/Lovenox 40 mg SQ daily (WT < 150 kg, CrCl > 30 mL/min) *Enoxaparin/Lovenox 30 mg SQ daily (WT < 150 kg, CrCl > 10-29 mL/min) *Enoxaparin/Lovenox 30 mg SQ BID (WT < 150 kg, CrCl > 30 mL/min) AND *Sequential Compression Device (SCD) Assessment and Plan - Assessment (1) Transient diplopia Code(s): H53.2 - Diplopia Status: Acute - Plan Transient diplopia -Unknown etiology at this time, could be secondary to TIA, eyestrain, eye muscle fatigue. -CT of the brain did not indicate any acute abnormality -MRI of the brain did not indicate any acute stroke -Carotid ultrasound did not indicate any significant stenosis -Telemetry reviewed which did not indicate any acute abnormality -We will continue full dose aspirin treatment -Patient was recommended to follow-up with stoker erector and servicer for further evaluation and eye exam Hyperlipidemia -Home medications continued DVT prevention -Sequential compression devices Discharge Planning: Discharge home in stable condition Activity: Ad salomón. Diet: Healthy heart diet Medication per medication reconciliation Follow-up with primary medical doctor in 1 week, follow-up with stoker erector and servicer
[2018-06-11 13:02] VITALS: BP 144/76; PULSE 75; RESP 17; TEMP 97.6; O2SAT 95
--- NOTE | 2018-06-11 13:24 | ECG ---
Date Performed: 06/10/2018 Time Performed: 16:09:48 PTAGE: 78 years EKG: Sinus rhythm MARKED LEFT AXIS DEVIATION LEFT BUNDLE BRANCH BLOCK ABNORMAL ECG Compared to PREVIOUS TRACING , PACs no longer present, otherwise no significant change. PREVIOUS TRAC IN11/30/2015 13.09 DOCTOR: [place] [employer] Date/Time 06/11/2018 13:22:42
== END 2018-06-11 13:00 | disposition home or self-care (01) ==
LOC: PHEDA 15:09 → PHED 15:09 → PHICU 20:00 → PHEDA 20:08
PROVIDERS: ADMIT Hospitalist; ATTEND Hospitalist
DX: Z82.0 Family history of epilepsy and other diseases of the nervous system; E78.00 Pure hypercholesterolemia, unspecified; E78.5 Hyperlipidemia, unspecified; Z86.73 Personal history of transient ischemic attack (TIA), and cerebral infarction without residual deficits; Z79.82 Long term (current) use of aspirin; I42.2 Other hypertrophic cardiomyopathy; Z80.8 Family history of malignant neoplasm of other organs or systems; H53.2 Diplopia; Z82.49 Family history of ischemic heart disease and other diseases of the circulatory system